=== PATIENT | male | born 1965 | race Caucasian/White ===

== ENCOUNTER 2018-10-08 10:00 | Outpatient (CLI) | payer BC | END 2018-10-08 10:01 | disposition home or self-care (01) | LOC: C.CTH 10:00 | DX: R07.89 Other chest pain (principal); M25.562 Pain in left knee ==

== ENCOUNTER 2018-10-08 10:56 | Inpatient (IN) | payer BC ==
[2018-10-08 12:12] LABS: BASO # 0.1 K/uL (0.0-0.2); BASO % 0.6 % (0.0-2.0); EOS # 0.4 K/uL (0.0-0.7); EOS % 3.2 % (0.0-4.0); HEMOGLOBIN 15.6 g/dL (12.0-18.0); LYMPH # 1.9 K/uL (1.0-4.3); LYMPH % 16.8 % (20.0-40.0); MEAN CELL VOLUME 84.7 fL (80.0-94.0); MEAN CORPUSCULAR HEMOGLOBIN 28.6 pg (27.0-31.0); MEAN CORPUSCULAR HGB CONC 33.8 g/dL (33.0-37.0); MEAN PLATELET VOLUME 8.1 fL (7.2-11.7); MONO # 0.7 K/uL (0.0-0.8); MONO % 6.4 % (0.0-10.0); NEUT # 8.2 K/uL (1.8-7.0); NRBC % 0.1 % (0.0-2.0); RBC 5.46 Mil/uL (4.40-5.90); RED CELL DISTRIBUTION WIDTH 14.1 % (11.5-14.5); WHITE BLOOD COUNT 11.3 K/uL (4.8-10.8)
[2018-10-08 12:23] LABS: ALB/GLOB RATIO 1.3 (1.0-2.1); ALBUMIN 4.2 g/dL (3.5-5.0); ALT/SGPT 36 U/L (21-72); AST/SGOT 31 U/L (17-59); BLOOD UREA NITROGEN 19 mg/dL (9-20); CALCIUM 9.9 mg/dl (8.6-10.4); GFR NON-AFRICAN AMERICAN > 60
--- NOTE | 2018-10-08 12:26 | C.PDOC ---
History Of Present Illness 53 y/o male is sent to the ER from CAT scan complaining of abdominal pain radiating to his chest. Patient states the pain initially started 3-4 months ago. He was seen by his PMD Dr. Smith and had an ultrasound of the gallbladder that was normal. Also had an endoscopy and bloodwork done that were both normal. Patient describes the pain as throbbing that starts in the epigastric region and radiates to chest. Reports he has it everyday and worsens with food intake, associated with nausea and vomiting. Denies fever, SOB, dysuria, or hematuria. Time Seen by Provider: 10/08/18 11:07 Chief Complaint (Nursing): Abdominal Pain History Per: Patient History/Exam Limitations: no limitations Onset/Duration Of Symptoms: Days Current Symptoms Are (Timing): Still Present Past Medical History Reviewed: Historical Data, Nursing Documentation, Vital Signs Vital Signs: Last Vital Signs Temp 98.5 F 10/08/18 10:58 Pulse 80 10/08/18 11:24 Resp 17 10/08/18 11:24 BP 134/91 H 10/08/18 11:24 Pulse Ox 97 10/08/18 11:24 Primary Care Provider: Jose Smith Family History: States: No Known Family Hx - Social History Hx Alcohol Use: No Hx Substance Use: No - Immunization History Hx Tetanus Toxoid Vaccination: Yes Hx Influenza Vaccination: Yes Hx Pneumococcal Vaccination: Yes Review Of Systems Constitutional: Negative for: Fever, Chills Respiratory: Negative for: Shortness of Breath Gastrointestinal: Positive for: Nausea, Vomiting, Abdominal Pain (radiating to chest). Negative for: Diarrhea Genitourinary: Negative for: Dysuria, Hematuria Physical Exam - Physical Exam Appears: Non-toxic, No Acute Distress, Other (mild discomfort) Skin: Warm, Dry Head: Normacephalic Eye(s): bilateral: Normal Inspection Oral Mucosa: Moist Neck: Supple Cardiovascular: Rhythm Regular, No Murmur Respiratory: Normal Breath Sounds, No Rales, No Rhonchi, No Wheezing Gastrointestinal/Abdominal: Soft, Tenderness (epigastric and LUQ tenderness), No Guarding, No Rebound, Other ((-)crocker's or mcburney's) Back: No CVA Tenderness Extremity: Bilateral: Normal ROM Neurological/Psych: Oriented x3, Normal Speech ED Course And Treatment - Laboratory Results Result Diagrams: 10/08/18 11:56 10/08/18 11:56 ECG: Interpreted By Me, Viewed By Me (NSR 77bpm, normal axis, no acute ST/T wave changes) ECG Interpretation: Normal O2 Sat by Pulse Oximetry: 97 (RA) Pulse Ox Interpretation: Normal - CT Scan/US CTA abd/pel Other Rad Studies (CT/US): Read By Radiologist, Radiology Report Reviewed CT/US Interpretation: Findings: Limited views of the inferior thorax demonstrates mild left basilar atelectasis/infiltrate. Nodularity/pleural thickening along the left lung base. There is normal course and contour of the abdominal aorta and common iliac arteries. The celiac artery origin is widely patent. The superior mesenteric artery origin is widely patent. The inferior mesenteric artery origin is patent. Bilateral renal arteries 2 on the left and 1 on the right identified bilaterally, both widely patent. Marked gastric wall thickening and associated inflammatory changes raise concern for acute gastritis. Pancreas appears edematous with associated peripancreatic inflamm atory changes; correlate clinically for acute pancreatitis. Prominent mesenteric/peripancreatic/perigastric lymph nodes measuring up to approximately 12 mm in short axis. Hypoattenuation of the liver compatible with hepatic steatosis. 8 mm probable splenule. The spleen, adrenal glands, and gallbladder appear otherwise unremarkable. The kidneys enhance symmetrically without evidence of hydronephrosis or obstructing renal calculi. Visualized bowel loops appear within normal limits of caliber without evidence of obstruction. Diverticulosis without CT evidence of acute diverticulitis. The appendix appears normal. No inflammatory changes are seen in the right lower quadrant to suggest acute appendicitis. No definite free air. The urinary bladder appears unremarkable. The prostate gland measures approximately 3.5 x 3.7 cm. Small pelvic free fluid is identified. 14 mm fat containing umbilical hernia. Left sided L5 spondylolysis. Impression: Mild left basilar atelectasis/infiltrate. Nodularity/pleural thickening along the left lung base. Marked gastric wall thickening and associated inflammatory changes raise concern for acute gastritis. Pancreas appears edematous with associated peripancreatic inflammatory changes; correlate clinically for acute pancreatitis. Prominent mesenteric/peripancreatic/perigastric lymph nodes measuring up to approximately 12 mm in short axis. Hypoattenuation of the liver compatible with hepatic steatosis. Diverticulosis without CT evidence of acute diverticulitis. Small pelvic free fluid is identified. 14 mm fat containing umbilical hernia. Left sided L5 spondylolysis. Findings discussed with Dr. Faria on 10/08/18 at 1:51 p.m. Abdomen US Other Rad Studies (CT/US): Read By Radiologist, Radiology Report Reviewed CT/US Interpretation: FINDINGS: LIVER: Measures 19.0 cm in length. Echogenic liver may be seen in setting of hepatic parenchymal disease or fatty infiltration. No focal hepatic mass identified. The main portal vein appears patent with normal directional flow. No intrahepatic bile duct dilatation. GALLBLADDER: No gallstones. No gallbladder wall thickening or pericholecystic edema. Negative sonographic Crocker's sign as assessed by the sales review clerk. C OMMON BILE DUCT: Measures 5 mm. PANCREAS: Not well-visualized. RIGHT KIDNEY: Measures approximately 11.6 x 4.6 x 5.3 cm. No obstructing calculus or hydronephrosis identified. AORTA: Limited visualization appears grossly unremarkable. IVC: Limited visualization appears grossly unremarkable. OTHER FINDINGS: None . IMPRESSION: Echogenic liver may be seen in setting of hepatic parenchymal disease or fatty infiltration. Hepatomegaly. Progress Note: Abd/Pel CTA and labs ordered. Patient given morphine. Abdomen US ordered. Disposition - Disposition - Scribe Statement The provider has reviewed the documentation as recorded by the Livanibdimitri Barron All medical record entries made by the Scribe were at my direction and personally dictated by me. I have reviewed the chart and agree that the record accurately reflects my personal performance of the history, physical exam, [facility] decision making, and the department course for this patient. I have also personally directed, reviewed, and agree with the discharge instructions and disposition.
[2018-10-08 12:29] LABS: CK-MB 0.92 ng/mL (0.0-3.38)
[2018-10-08 12:45] LABS: LIPASE 4816 U/L (23-300)
[2018-10-08] MEDS ORDERED: Iodixanol 320 MG/ML 100 ML BOTTLE IV ONE (13:14)
[2018-10-08 14:03] LABS: URINE BILIRUBIN NEGATIVE (NEGATIVE); URINE BLOOD NEGATIVE (NEGATIVE); URINE CLARITY Clear (Clear); URINE COLOR Yellow (YELLOW); URINE GLUCOSE (UA) NORMAL (Normal); URINE LEUKOCYTE ESTERASE NEG Leu/uL (Negative); URINE PROTEIN NEGATIVE (NEGATIVE); URINE UROBILINOGEN NORMAL mg/dL (0.2-1.0)
--- NOTE | 2018-10-08 14:09 | CT ---
Date of service: 10/08/2018 CTA abdomen and pelvis Indication: chronic upper abd pain, neg endoscopy and RUQ US Comparison: Abdomen CT without contrast performed 05/07/18 Technique: Contrast dose: Total exam DLP: 890.44 Axial computed tomographic angiogram images of the abdomen and pelvis were performed after bolus administration of nonionic intravenous contrast. Multiplanar, 3D (maximum intensity projection) reconstructions of the aorta were created in the coronal and sagittal planes by the instrument technologist. This CT exam was performed using 1 or more of the falling dose reduction techniques: Automated exposure control, adjustment of the MAA and/or kV according to patient size, and/or use of iterative reconstruction technique. Findings: Limited views of the inferior thorax demonstrates mild left basilar atelectasis/infiltrate. Nodularity/pleural thickening along the left lung base. There is normal course and contour of the abdominal aorta and common iliac arteries. The celiac artery origin is widely patent. The superior mesenteric artery origin is widely patent. The inferior mesenteric artery origin is patent. Bilateral renal arteries 2 on the left and 1 on the right identified bilaterally, both widely patent. Marked gastric wall thickening and associated inflammatory changes raise concern for acute gastritis. Pancreas appears edematous with associated peripancreatic inflammatory changes; correlate clinically for acute pancreatitis. Prominent mesenteric/peripancreatic/perigastric lymph nodes measuring up to approximately 12 mm in short axis. Hypoattenuation of the liver compatible with hepatic steatosis. 8 mm probable splenule. The spleen, adrenal glands, and gallbladder appear otherwise unremarkable. The kidneys enhance symmetrically without evidence of hydronephrosis or obstructing renal calculi. Visualized bowel loops appear within normal limits of caliber without evidence of obstruction. Diverticulosis without CT evidence of acute diverticulitis. The appendix appears normal. No inflammatory changes are seen in the right lower quadrant to suggest acute appendicitis. No definite free air. The urinary bladder appears unremarkable. The prostate gland measures approximately 3.5 x 3.7 cm. Small pelvic free fluid is identified. 14 mm fat containing umbilical hernia. Left sided L5 spondylolysis. Impression: Mild left basilar atelectasis/infiltrate. Nodularity/pleural thickening along the left lung base. Marked gastric wall thickening and associated inflammatory changes raise concern for acute gastritis. Pancreas appears edematous with associated peripancreatic inflammatory changes; correlate clinically for acute pancreatitis. Prominent mesenteric/peripancreatic/perigastric lymph nodes measuring up to approximately 12 mm in short axis. Hypoattenuation of the liver compatible with hepatic steatosis. Diverticulosis without CT evidence of acute diverticulitis. Small pelvic free fluid is identified. 14 mm fat containing umbilical hernia. Left sided L5 spondylolysis. Findings discussed with Dr. Faria on 10/08/18 at 1:51 p.m.
[2018-10-08] MEDS ORDERED: Sodium Chloride 0.9% 1,000 ML IV ONE (14:54)
[2018-10-08] MEDS ORDERED: Morphine 4 MG/ML VIAL ONE (15:01)
[2018-10-08] MEDS ORDERED: Sodium Chloride 0.9% 1,000 ML ONE (15:01)
[2018-10-08] MEDS ORDERED: Lactated Ringer's 1,000 ML IV SCH (15:30)
[2018-10-08 15:45] LABS: HDL CHOLESTEROL 32 mg/dL (30-70)
--- NOTE | 2018-10-08 15:49 | CP.PCM.HP ---
<Rema Rodríguez - Last Filed: 10/08/18 17:37> History of Present Illness - History of Present Illness History of Present Illness: Medicine Note for Hospitalist Service This is a 53 year old male with PMHx pancreatitis, diverticulosis, hepatic steatosis, and an umbilical hernia who is being admitted for chest and abdominal pain. Patient came to [facility] to have a CT scane done that was ordered by his PCP for continued abdominal pain. Patient reported to have chest pain and was encouraged to come to the ED for further evaluation. As per patient, he has had abdominal pain for almost 6 months. He had a prior abdominal CT Scan in April 2018, showing acute pancreatitis. Patient had EGD performed 4 months ago, which was unremarkable for any findings. He was instructed by his PMD to follow up with Cardio as well, however he has not. Patient reports because he works all day he does not eat. Instead he eats, mostly unhealthy food at night. As the 6 months progressed, the pain is worse and more frequent. The pain is sharp in nature, epigastric, and at times radiates to his chest and back. The patient has just dealt with the pain, however this time it was unbearable. He had a cup of coffee in the morning and vomited shortly after. Patient denied any alcohol use or recent travel. PMHx: As noted above PSHx: Right inguinal hernia repair 2018 Meds: Nexium as needed, omeprazole daily All: NKDA SHx: 1 PPD for 24 years quit 2 years ago, denied alcohol, or illicit drug use FHx: Unknown as patient was adopted PMD: Sarah Present on Admission - Present on Admission Any Indicators Present on Admission: No Past Patient History - Past Social History Smoking Status: Never Smoked - PSYCHIATRIC Hx Substance Use: No - SURGICAL HISTORY Hx Surgeries: Yes Hx Herniorrhaphy: Yes - ANESTHESIA Hx Anesthesia: Yes Hx Anesthesia Reactions: No Hx Malignant Hyperthermia: No Meds Allergies/Adverse Reactions: Allergies Allergy/AdvReac Type Severity Reaction Status Date / Time No Known Allergies Allergy Unverified 10/08/18 11:01 Physical Exam - Constitutional Appears: No Acute Distress - Head Exam Head Exam: NORMAL INSPECTION, NORMOCEPHALIC - Eye Exam Eye Exam: EOMI, Normal appearance, PERRL Pupil Exam: NORMAL ACCOMODATION - ENT Exam ENT Exam: Mucous Membranes Moist - Respiratory Exam Respiratory Exam: Clear to Auscultation Bilateral, NORMAL BREATHING PATTERN. absent: Decreased Breath Sounds, Rales, Rhonchi, Wheezes - Cardiovascular Exam Cardiovascular Exam: REGULAR RHYTHM - GI/Abdominal Exam GI & Abdominal Exam: Hernia (umbilical hernia noted), Normal Bowel Sounds, Soft, Tenderness (TTP epigastric region ). absent: Distended, Organomegaly, Pulsatile Mass, Rebound, Rigid - Extremities Exam Extremities exam: Positive for: normal inspection, pedal pulses present. Negative for: pedal edema, tenderness - Neurological Exam Neurological exam: Alert, CN II-XII Intact, Oriented x3 - Psychiatric Exam Psychiatric exam: Normal Affect, Normal Mood - Skin Skin Exam: Dry, Intact, Normal Color, Warm Results - Vital Signs Recent Vital Signs: Last Vital Signs Temp 98.5 F 10/08/18 10:58 Pulse 74 10/08/18 14:03 Resp 20 10/08/18 14:03 BP 133/85 10/08/18 14:03 Pulse Ox 97 10/08/18 15:35 - Labs Result Diagrams: 10/08/18 11:56 10/08/18 11:56 Labs: Laboratory Results - last 24 hr 10/08/18 10/08/18 10/08/18 11:56 11:56 13:53 WBC 11.3 H RBC 5.46 Hgb 15.6 Hct 46.2 MCV 84.7 MCH 28.6 MCHC 33.8 RDW 14.1 Plt Count 290 MPV 8.1 Neut % (Auto) 73.0 Lymph % (Auto) 16.8 L [place] % (Auto) 6.4 Eos % (Auto) 3.2 Baso % (Auto) 0.6 Neut # (Auto) 8.2 H Lymph # (Auto) 1.9 [place] # (Auto) 0.7 Eos # (Auto) 0.4 Baso # (Auto) 0.1 Sodium 137 Potassium 4.9 Chloride 99 Carbon Dioxide 30 Anion Gap 13 BUN 19 Creatinine 1.0 Est GFR ( Amer) > 60 Est GFR (Non-Af Amer) > 60 Random Glucose 108 Calcium 9.9 Total Bilirubin 0.6 AST 31 ALT 36 Alkaline Phosphatase 92 Total Creatine Kinase 108 CK-MB (Mass) 0.92 Troponin I < 0.0120 Total Protein 7.4 Albumin 4.2 Globulin 3.1 Albumin/Globulin Ratio 1.3 Lipase 4816 H Urine Color Yellow Urine Clarity Clear Urine pH 6.0 Ur Specific [place] 1.024 Urine Protein Negative Urine Glucose (UA) Normal Urine Ketones Negative Urine Blood Negative Urine Nitrate Negative Urine Bilirubin Negative Urine Urobilinogen Normal Ur Leukocyte Esterase Neg Urine WBC (Auto) < 1 Urine RBC (Auto) < 1 Assessment & Plan - Assessment and Plan (Free Text) Plan: Acute Pancreatitis -- Dr. Hoang consulted - (saw patient in 03/2018) Imaging: - Prior CT Scan 04/2018 - Findings suspicious for acute noncomplicated pancreatitis. No CT evidence of radiodense gallstones or acute cholecystitis. Mild hepatomegaly with findings suggestive of moderate hepatic steatosis. Foci of pleural thickening at the left chest base. - CTA 10/08/18: Mild left basilar atelectasis/infiltrate. Nodularity/pleural thickening along the left lung base. Marked gastric wall thickening and associated inflammatory changes raise concern for acute gastritis. Pancreas appears edematous with associated peripancreatic inflammatory changes; correlate clinically for acute pancreatitis. Prominent mesenteric/peripancreatic/perigastric lymph nodes measuring up to approximately 12 mm in short axis.Hypoattenuation of the liver compatible with hepatic steatosis. Diverticulosis without CT evidence of acute diverticulitis. Small pelvic free fluid is identified. 14 mm fat containing umbilical hernia. Left sided L5 spondylolysis. - Abdominal US 10/08/18: LIVER:Measures 19.0 cm in length. Echogenic liver may be seen in setting of hepatic parenchymal disease or fatty infiltration. No focal hepatic mass identified. The main portal vein appears patent with normal directional flow. No intrahepatic bile duct dilatation. GALLBLADDER:No gallstones. No gallbladder wall thickening or pericholecystic edema. Negative sonographic Crocker's sign as assessed by the doctor of naprapathic medicine. COMMON BILE DUCT:Measures 5 mm. - MRCP: ordered, pending results Management: - NPO - Lipase 4800, Lipid Panel - WNL, Alcohol <10 - No evidence of gallstone pancreatitis on US - Patient denied any alcohol use, not induced by medications - Spoke with Dr. Sandoval covering for Dr. Hoang - MRCP and autoimmune work up ordered - Morphine 2mg IVP Q6H, Zofran PRN - LR @ 250cc/hr Chest Pain r/o ACS - Likely epigastric pain secondary to acute pancreatitis - EKG: NSR 77bpm, normal axis, no acute ST/T wave changes - Initial troponin negative, f/u [facility] x2 Former Tobacco User - 1 PPD for 34 years, quit 2 years ago - No masses noted on CTA Diverticulosis - Without CT evidence of acute diverticulitis - Noted on CTA and prior CT Scan 04/2018 Hepatic Steatosis - Noted on CTA and prior CT Scan 04/2018 Umbilical Hernia - Noted on CTA and prior CT Scan 04/2018 Prophylactic Measures - GI PPX: Protonix IVP daily - DVT PPX: SCDs, VTE not indicated Disposition: Will advance diet as tolerated. Pending MRCP results. DW Dr. Cavazos, Rema Rodríguez DO, PGY2 <Keenan Cavazos - Last Filed: 10/09/18 07:54> Results - Vital Signs Recent Vital Signs: Last Vital Signs Temp 98.6 F 10/09/18 00:14 Pulse 88 10/09/18 00:14 Resp 20 10/09/18 00:14 BP 114/79 10/09/18 00:14 Pulse Ox 97 10/09/18 00:14 - Labs Result Diagrams: 10/09/18 07:17 10/08/18 11:56 Labs: Laboratory Results - last 24 hr 10/08/18 10/08/18 10/08/18 11:56 11:56 13:53 WBC 11.3 H RBC 5.46 Hgb 15.6 Hct 46.2 MCV 84.7 MCH 28.6 MCHC 33.8 RDW 14.1 Plt Count 290 MPV 8.1 Neut % (Auto) 73.0 Lymph % (Auto) 16.8 L [place] % (Auto) 6.4 Eos % (Auto) 3.2 Baso % (Auto) 0.6 Neut # (Auto) 8.2 H Lymph # (Auto) 1.9 [place] # (Auto) 0.7 Eos # (Auto) 0.4 Baso # (Auto) 0.1 Sodium 137 Potassium 4.9 Chloride 99 Carbon Dioxide 30 Anion Gap 13 BUN 19 Creatinine 1.0 Est GFR ( Amer) > 60 Est GFR (Non-Af Amer) > 60 Random Glucose 108 Calcium 9.9 Total Bilirubin 0.6 AST 31 ALT 36 Alkaline Phosphatase 92 Total Creatine Kinase 108 CK-MB (Mass) 0.92 Troponin I < 0.0120 Total Protein 7.4 Albumin 4.2 Globulin 3.1 Albumin/Globulin Ratio 1.3 Triglycerides Cholesterol LDL Cholesterol Direct HDL Cholesterol Lipase 4816 H Urine Color Yellow Urine Clarity Clear Urine pH 6.0 Ur Specific [place] 1.024 Urine Protein Negative Urine Glucose (UA) Normal Urine Ketones Negative Urine Blood Negative Urine Nitrate Negative Urine Bilirubin Negative Urine Urobilinogen Normal Ur Leukocyte Esterase Neg Urine WBC (Auto) < 1 Urine RBC (Auto) < 1 Urine Opiates Screen Urine Methadone Screen Ur Barbiturates Screen Ur Phencyclidine Scrn Ur Amphetamines Screen U Benzodiazepines Scrn U Oth Cocaine Metabols U Cannabinoids Screen Alcohol, Quantitative 10/08/18 10/08/18 10/08/18 15:34 15:36 19:19 WBC RBC Hgb Hct MCV MCH MCHC RDW Plt Count MPV Neut % (Auto) Lymph % (Auto) [place] % (Auto) Eos % (Auto) Baso % (Auto) Neut # (Auto) Lymph # (Auto) [place] # (Auto) Eos # (Auto) Baso # (Auto) Sodium Potassium Chloride Carbon Dioxide Anion Gap BUN Creatinine Est GFR ( Amer) Est GFR (Non-Af Amer) Random Glucose Calcium Total Bilirubin AST ALT Alkaline Phosphatase Total Creatine Kinase 75 CK-MB (Mass) 0.69 Troponin I < 0.0120 Total Protein Albumin Globulin Albumin/Globulin Ratio Triglycerides 139 Cholesterol 178 LDL Cholesterol Direct 122 HDL Cholesterol 32 Lipase Urine Color Urine Clarity Urine pH Ur Specific [place] Urine Protein Urine Glucose (UA) Urine Ketones Urine Blood Urine Nitrate Urine Bilirubin Urine Urobilinogen Ur Leukocyte Esterase Urine WBC (Auto) Urine RBC (Auto) Urine Opiates Screen Positive H Urine Methadone Screen Negative Ur Barbiturates Screen Negative Ur Phencyclidine Scrn Negative Ur Amphetamines Screen Negative U Benzodiazepines Scrn Negative U Oth Cocaine Metabols Negative U Cannabinoids Screen Negative Alcohol, Quantitative < 10 10/09/18 07:17 WBC 9.9 RBC 5.19 Hgb 14.7 Hct 44.7 MCV 86.1 MCH 28.4 MCHC 33.0 RDW 14.2 Plt Count 276 MPV 8.0 Neut % (Auto) 68.8 Lymph % (Auto) 19.4 L [place] % (Auto) 7.7 Eos % (Auto) 3.9 Baso % (Auto) 0.2 Neut # (Auto) 6.8 Lymph # (Auto) 1.9 [place] # (Auto) 0.8 Eos # (Auto) 0.4 Baso # (Auto) 0.0 Sodium Potassium Chloride Carbon Dioxide Anion Gap BUN Creatinine Est GFR ( Amer) Est GFR (Non-Af Amer) Random Glucose Calcium Total Bilirubin AST ALT Alkaline Phosphatase Total Creatine Kinase CK-MB (Mass) Troponin I Total Protein Albumin Globulin Albumin/Globulin Ratio Triglycerides Cholesterol LDL Cholesterol Direct HDL Cholesterol Lipase Urine Color Urine Clarity Urine pH Ur Specific [place] Urine Protein Urine Glucose (UA) Urine Ketones Urine Blood Urine Nitrate Urine Bilirubin Urine Urobilinogen Ur Leukocyte Esterase Urine WBC (Auto) Urine RBC (Auto) Urine Opiates Screen Urine Methadone Screen Ur Barbiturates Screen Ur Phencyclidine Scrn Ur Amphetamines Screen U Benzodiazepines Scrn U Oth Cocaine Metabols U Cannabinoids Screen Alcohol, Quantitative Attending/Attestation - Attestation I have personally seen and examined this patient.: Yes I have fully participated in the care of the patient.: Yes I have reviewed all pertinent clinical information: Yes Notes (Text): 10/09/18 07:51 Medical attending: Patient was seen and examined by me. Agree with the above note by the resident The patient was with family members at bedside. The patient was already made NPO, IVF, pain medications. He had ultrasound and CT of the abdomen and pelvis done already - and the imaging was He also denied alcohol use and has not started a new medication, cholesterol is stable as well Will consult GI for evaluation as well Keenan Cavazos
--- NOTE | 2018-10-08 15:50 | US ---
Date of service: 10/08/2018 HISTORY: PANCREATITIS R/O GALLSTONES COMPARISON: CTA abdomen and pelvis performed 10/08/18 TECHNIQUE: Sonographic evaluation of the right upper quadrant of the abdomen. FINDINGS: LIVER: Measures 19.0 cm in length. Echogenic liver may be seen in setting of hepatic parenchymal disease or fatty infiltration. No focal hepatic mass identified. The main portal vein appears patent with normal directional flow. No intrahepatic bile duct dilatation. GALLBLADDER: No gallstones. No gallbladder wall thickening or pericholecystic edema. Negative sonographic Crocker's sign as assessed by the traffic ii manager. COMMON BILE DUCT: Measures 5 mm. PANCREAS: Not well-visualized. RIGHT KIDNEY: Measures approximately 11.6 x 4.6 x 5.3 cm. No obstructing calculus or hydronephrosis identified. AORTA: Limited visualization appears grossly unremarkable. IVC: Limited visualization appears grossly unremarkable. OTHER FINDINGS: None . IMPRESSION: Echogenic liver may be seen in setting of hepatic parenchymal disease or fatty infiltration. Hepatomegaly.
[2018-10-08 15:56] LABS: LDL CHOLESTEROL 122 mg/dL (0-129)
[2018-10-08 15:59] LABS: BARBITURATES, UR NEGATIVE (NEGATIVE); BENZODIAZEPINES, UR NEGATIVE (NEGATIVE); PHENCYCLIDINE, UR NEGATIVE (NEGATIVE)
[2018-10-08 16:00] LABS: OPIATES, UR POSITIVE (NEGATIVE)
[2018-10-08] MEDS: Lactated Ringer's 1,000 ML IV SCH ×2 (19:23→21:24)
[2018-10-08 19:49] LABS: CK-MB 0.69 ng/mL (0.0-3.38)
[2018-10-09] MEDS: Lactated Ringer's 1,000 ML IV SCH ×10 (01:50→23:04)
[2018-10-09 07:29] LABS: BASO % 0.2 % (0.0-2.0); EOS # 0.4 K/uL (0.0-0.7); EOS % 3.9 % (0.0-4.0); HEMOGLOBIN 14.7 g/dL (12.0-18.0); LYMPH # 1.9 K/uL (1.0-4.3); LYMPH % 19.4 % (20.0-40.0); MEAN CELL VOLUME 86.1 fL (80.0-94.0); MEAN CORPUSCULAR HEMOGLOBIN 28.4 pg (27.0-31.0); MONO # 0.8 K/uL (0.0-0.8); MONO % 7.7 % (0.0-10.0); NEUT # 6.8 K/uL (1.8-7.0); NEUT % 68.8 % (50.0-75.0); NRBC % 0.1 % (0.0-2.0); RBC 5.19 Mil/uL (4.40-5.90); RED CELL DISTRIBUTION WIDTH 14.2 % (11.5-14.5); WHITE BLOOD COUNT 9.9 K/uL (4.8-10.8)
[2018-10-09 07:52] LABS: CK-MB 0.43 ng/mL (0.0-3.38)
[2018-10-09 07:59] LABS: ALB/GLOB RATIO 1.3 (1.0-2.1); ALBUMIN 3.7 g/dL (3.5-5.0); ALT/SGPT 29 U/L (21-72); AST/SGOT 23 U/L (17-59); BLOOD UREA NITROGEN 15 mg/dL (9-20); CALCIUM 9.4 mg/dl (8.6-10.4); GFR NON-AFRICAN AMERICAN > 60
--- NOTE | 2018-10-09 09:14 | CP.PCM.PN ---
<Rema Rodríguez - Last Filed: 10/09/18 09:22> Subjective - Date & Time of Evaluation Date of Evaluation: 10/09/18 Time of Evaluation: 09:12 - Subjective Subjective: Medicine Note for Hospitalist Service Patient was seen and examined at bedside. Patient reports he did have some pain last night, which was controlled with pain medication. Currently patient does not have pain. Objective - Vital Signs/Intake and Output Vital Signs (last 24 hours): Temp Pulse Resp BP Pulse Ox 98.2 F 82 20 128/86 95 10/09/18 07:00 10/09/18 07:00 10/09/18 07:00 10/09/18 07:00 10/09/18 07:00 Intake and Output: 10/09/18 10/09/18 06:59 18:59 Intake Total 2200 Balance 2200 - Medications Medications: Current Medications Acetaminophen (Tylenol 325mg Tab) 650 mg PO Q6 PRN PRN Reason: Fever >100.4 F Lactated Ringer's (Lactated Ringer's) 1,000 mls @ 250 mls/hr IV .Q4H [facility] Last Admin: 10/09/18 08:11 Dose: 250 mls/hr Morphine Sulfate (Morphine) 2 mg IVP Q6H PRN PRN Reason: Pain, severe (8-10) Last Admin: 10/09/18 03:42 Dose: 2 mg Ondansetron HCl (Zofran Inj) 4 mg IVP Q6 PRN PRN Reason: Nausea/Vomiting Pantoprazole Sodium (Protonix Inj) 40 mg IVP DAILY RODRIGO - Labs Labs: 10/09/18 07:17 10/09/18 07:17 - Constitutional Appears: No Acute Distress - Head Exam Head Exam: NORMAL INSPECTION, NORMOCEPHALIC - Eye Exam Eye Exam: EOMI, Normal appearance, PERRL Pupil Exam: NORMAL ACCOMODATION - ENT Exam ENT Exam: Mucous Membranes Moist - Respiratory Exam Respiratory Exam: Clear to Ausculation Bilateral, NORMAL BREATHING PATTERN. absent: Decreased Breath Sounds - Cardiovascular Exam Cardiovascular Exam: REGULAR RHYTHM - GI/Abdominal Exam GI & Abdominal Exam: Soft, Tenderness (Slight tenderness to the epigastric area, reduced from yesterdays exam), Normal Bowel Sounds. absent: Distended - Extremities Exam Extremities Exam: Normal Inspection. absent: Pedal Edema, Tenderness - Neurological Exam Neurological Exam: Alert, Awake, Oriented x3 - Psychiatric Exam Psychiatric exam: Normal Affect, Normal Mood - Skin Skin Exam: Dry, Intact, Normal Color, Warm Assessment and Plan - Assessment and Plan (Free Text) Plan: Acute Pancreatitis -- Dr. Hoang consulted - (saw patient in 03/2018) Imaging: - Prior CT Scan 04/2018 - Findings suspicious for acute noncomplicated pancreatitis. No CT evidence of radiodense gallstones or acute cholecystitis. Mild hepatomegaly with findings suggestive of moderate hepatic steatosis. Foci of pleural thickening at the left chest base. - CTA 10/08/18: Mild left basilar atelectasis/infiltrate. Nodularity/pleural thickening along the left lung base. Marked gastric wall thickening and associated inflammatory changes raise concern for acute gastritis. Pancreas appears edematous with associated peripancreatic inflammatory changes; correlate clinically for acute pancreatitis. Prominent mesenteric/peripancreatic/perigastric lymph nodes measuring up to approximately 12 mm in short axis.Hypoattenuation of the liver compatible with hepatic steatosis. Diverticulosis without CT evidence of acute diverticulitis. Small pelvic free fluid is identified. 14 mm fat containing umbilical hernia. Left sided L5 spondylolysis. - Abdominal US 10/08/18: LIVER:Measures 19.0 cm in length. Echogenic liver may be seen in setting of hepatic parenchymal disease or fatty infiltration. No focal hepatic mass identified. The main portal vein appears patent with normal directional flow. No intrahepatic bile duct dilatation. GALLBLADDER:No gallstones. No gallbladder wall thickening or pericholecystic edema. Negative sonographic Crocker's sign as assessed by the frame builder. COMMON BILE DUCT:Measures 5 mm. - MRCP: ordered, pending results Management: - NPO - Lipase 4800, Lipid Panel - WNL, Alcohol <10 - No evidence of gallstone pancreatitis on US - Patient denied any alcohol use, not induced by medications - Spoke with Dr. Sandoval covering for Dr. Hoang - MRCP and autoimmune work up ordered - Morphine 2mg IVP Q6H, Zofran PRN - LR @ 250cc/hr Chest Pain r/o ACS - Likely epigastric pain secondary to acute pancreatitis - EKG: NSR 77bpm, normal axis, no acute ST/T wave changes - All ROMIs x3 negative Former Tobacco User - 1 PPD for 34 years, quit 2 years ago - No masses noted on CTA Diverticulosis - Without CT evidence of acute diverticulitis - Noted on CTA and prior CT Scan 04/2018 Hepatic Steatosis - Noted on CTA and prior CT Scan 04/2018 Umbilical Hernia - Noted on CTA and prior CT Scan 04/2018 Prophylactic Measures - GI PPX: Protonix IVP daily - DVT PPX: SCDs, VTE not indicated Disposition: Will advance diet as tolerated. Pending MRCP results. Autoimmune workup ordered. DW Dr. Cavazos, Rema Rodríguez DO, PGY2 <Keenan Cavazos - Last Filed: 10/09/18 09:59> Objective - Vital Signs/Intake and Output Vital Signs (last 24 hours): Temp Pulse Resp BP Pulse Ox 98.2 F 82 20 128/86 95 10/09/18 07:00 10/09/18 07:00 10/09/18 07:00 10/09/18 07:00 10/09/18 07:00 Intake and Output: 10/09/18 10/09/18 06:59 18:59 Intake Total 2200 Balance 2200 - Medications Medications: Current Medications Acetaminophen (Tylenol 325mg Tab) 650 mg PO Q6 PRN PRN Reason: Fever >100.4 F Lactated Ringer's (Lactated Ringer's) 1,000 mls @ 150 mls/hr IV .Q6H40M RODRIGO Morphine Sulfate (Morphine) 2 mg IVP Q6H PRN PRN Reason: Pain, severe (8-10) Last Admin: 10/09/18 03:42 Dose: 2 mg Ondansetron HCl (Zofran Inj) 4 mg IVP Q6 PRN PRN Reason: Nausea/Vomiting - Labs Labs: 10/09/18 07:17 10/09/18 07:17 Attending/Attestation - Attestation I have personally seen and examined this patient.: Yes I have fully participated in the care of the patient.: Yes I have reviewed all pertinent clinical information, including history, physical exam and plan: Yes Notes (Text): 10/09/18 09:47 Medical attending: Patient was seen and examined by me earlier this morning with the medical residents. The patient was not in any acute distress when we came and saw him. He also did not have pain with palpation this morning of the abdomen. He explains he had pain only once last night and this was controlled with the administration of the IV morphine. At this moment he remains on the IVF, NPO. He is pending MRCP and also autoimmune lab work thank you Keenan Cavazos
--- NOTE | 2018-10-09 09:16 | CP.PCM.CON ---
History of Present Illness - History of Present Illness History of Present Illness: This is a 53 year old man with abdominal pain. Patient initially noted abdominal pain, epigastric, six months ago. The pain occurred daily, was described as colicky, intermittent, lasting several minutes to an hour at a time, radiating to the chest and back. The pain seemed to improve with eating and with defecating. He was evaluated with an EGD by Dr. Hoang last year which was normal. A CT scan 05/07/2018 showed a "prominent" pancreas with associated fat stranding which was thought to be consistent with pancreatitis. He had nausea and vomiting on Wednesday, but not before. He denies having difficultly swallowing, heartburn, loss of appetite, loss of weight, diarrhea, constipation, and rectal bleeding. A repeat CT scan was performed in the ER, which showed an edematous pancreas with associated peripancreatic inflammatory changes; in addition, prominent mesenteric peripancreatic and perigastric lymph nodes were seen. Ultrasound showed no gallstones and a normal common duct. The lipase was elevated to 4816. Review of Systems - Review of Systems All systems: reviewed and no additional remarkable complaints except - Constitutional Constitutional: absent: Anorexia, Chills, Fever, Weight Loss - Cardiovascular Cardiovascular: absent: Dyspnea - Respiratory Respiratory: absent: Dyspnea - Gastrointestinal Gastrointestinal: Abdominal Pain, Nausea, Vomiting. absent: Constipation, Diarrhea, Dysphagia, Heartburn, Hematochezia - Genitourinary Genitourinary: absent: Dysuria, Hematuria Past Patient History - Past Medical History & Family History Past Medical History?: No - Past Social History Smoking Status: Never Smoked - MUSCULOSKELETAL/RHEUMATOLOGICAL Hx Falls: No - PSYCHIATRIC Hx Substance Use: No - SURGICAL HISTORY Hx Surgeries: Yes Hx Herniorrhaphy: Yes - ANESTHESIA Hx Anesthesia: Yes Hx Anesthesia Reactions: No Hx Malignant Hyperthermia: No Meds Allergies/Adverse Reactions: Allergies Allergy/AdvReac Type Severity Reaction Status Date / Time No Known Allergies Allergy Unverified 10/08/18 11:01 - Medications Medications: Current Medications Acetaminophen (Tylenol 325mg Tab) 650 mg PO Q6 PRN PRN Reason: Fever >100.4 F Lactated Ringer's (Lactated Ringer's) 1,000 mls @ 250 mls/hr IV .Q4H [facility] Last Admin: 10/09/18 08:11 Dose: 250 mls/hr Morphine Sulfate (Morphine) 2 mg IVP Q6H PRN PRN Reason: Pain, severe (8-10) Last Admin: 10/09/18 03:42 Dose: 2 mg Ondansetron HCl (Zofran Inj) 4 mg IVP Q6 PRN PRN Reason: Nausea/Vomiting Pantoprazole Sodium (Protonix Inj) 40 mg IVP DAILY RODRIGO Physical Exam - Constitutional Appears: No Acute Distress - Head Exam Head Exam: ATRAUMATIC, NORMOCEPHALIC - Eye Exam Eye Exam: EOMI, PERRL - Neck Exam Neck exam: Negative for: Lymphadenopathy, Thyromegaly - Respiratory Exam Respiratory Exam: NORMAL BREATHING PATTERN. absent: Rales, Rhonchi, Wheezes - Cardiovascular Exam Cardiovascular Exam: REGULAR RHYTHM, +S1, +S2. absent: Gallop, Rubs, Systolic Murmur - GI/Abdominal Exam GI & Abdominal Exam: Normal Bowel Sounds, Soft. absent: Mass, Organomegaly, Tenderness - Rectal Exam Rectal Exam: Deferred - Extremities Exam Extremities exam: Negative for: calf tenderness, pedal edema Results - Vital Signs Recent Vital Signs: Last Vital Signs Temp 98.2 F 10/09/18 07:00 Pulse 82 10/09/18 07:00 Resp 20 10/09/18 07:00 BP 128/86 10/09/18 07:00 Pulse Ox 95 10/09/18 07:00 - Labs Result Diagrams: 10/09/18 07:17 10/09/18 07:17 Labs: Laboratory Results - last 24 hr 10/08/18 10/08/18 10/08/18 11:56 11:56 13:53 WBC 11.3 H RBC 5.46 Hgb 15.6 Hct 46.2 MCV 84.7 MCH 28.6 MCHC 33.8 RDW 14.1 Plt Count 290 MPV 8.1 Neut % (Auto) 73.0 Lymph % (Auto) 16.8 L Kidder % (Auto) 6.4 Eos % (Auto) 3.2 Baso % (Auto) 0.6 Neut # (Auto) 8.2 H Lymph # (Auto) 1.9 Kidder # (Auto) 0.7 Eos # (Auto) 0.4 Baso # (Auto) 0.1 Sodium 137 Potassium 4.9 Chloride 99 Carbon Dioxide 30 Anion Gap 13 BUN 19 Creatinine 1.0 Est GFR ( Amer) > 60 Est GFR (Non-Af Amer) > 60 Random Glucose 108 Calcium 9.9 Phosphorus Magnesium Total Bilirubin 0.6 AST 31 ALT 36 Alkaline Phosphatase 92 Total Creatine Kinase 108 CK-MB (Mass) 0.92 Troponin I < 0.0120 Total Protein 7.4 Albumin 4.2 Globulin 3.1 Albumin/Globulin Ratio 1.3 Triglycerides Cholesterol LDL Cholesterol Direct HDL Cholesterol Lipase 4816 H Urine Color Yellow Urine Clarity Clear Urine pH 6.0 Ur Specific [place] 1.024 Urine Protein Negative Urine Glucose (UA) Normal Urine Ketones Negative Urine Blood Negative Urine Nitrate Negative Urine Bilirubin Negative Urine Urobilinogen Normal Ur Leukocyte Esterase Neg Urine WBC (Auto) < 1 Urine RBC (Auto) < 1 Urine Opiates Screen Urine Methadone Screen Ur Barbiturates Screen Ur Phencyclidine Scrn Ur Amphetamines Screen U Benzodiazepines Scrn U Oth Cocaine Metabols U Cannabinoids Screen Alcohol, Quantitative 10/08/18 10/08/18 10/08/18 15:34 15:36 19:19 WBC RBC Hgb Hct MCV MCH MCHC RDW Plt Count MPV Neut % (Auto) Lymph % (Auto) Kidder % (Auto) Eos % (Auto) Baso % (Auto) Neut # (Auto) Lymph # (Auto) Kidder # (Auto) Eos # (Auto) Baso # (Auto) Sodium Potassium Chloride Carbon Dioxide Anion Gap BUN Creatinine Est GFR ( Amer) Est GFR (Non-Af Amer) Random Glucose Calcium Phosphorus Magnesium Total Bilirubin AST ALT Alkaline Phosphatase Total Creatine Kinase 75 CK-MB (Mass) 0.69 Troponin I < 0.0120 Total Protein Albumin Globulin Albumin/Globulin Ratio Triglycerides 139 Cholesterol 178 LDL Cholesterol Direct 122 HDL Cholesterol 32 Lipase Urine Color Urine Clarity Urine pH Ur Specific [place] Urine Protein Urine Glucose (UA) Urine Ketones Urine Blood Urine Nitrate Urine Bilirubin Urine Urobilinogen Ur Leukocyte Esterase Urine WBC (Auto) Urine RBC (Auto) Urine Opiates Screen Positive H Urine Methadone Screen Negative Ur Barbiturates Screen Negative Ur Phencyclidine Scrn Negative Ur Amphetamines Screen Negative U Benzodiazepines Scrn Negative U Oth Cocaine Metabols Negative U Cannabinoids Screen Negative Alcohol, Quantitative < 10 10/09/18 10/09/18 07:17 07:17 WBC 9.9 RBC 5.19 Hgb 14.7 Hct 44.7 MCV 86.1 MCH 28.4 MCHC 33.0 RDW 14.2 Plt Count 276 MPV 8.0 Neut % (Auto) 68.8 Lymph % (Auto) 19.4 L Kidder % (Auto) 7.7 Eos % (Auto) 3.9 Baso % (Auto) 0.2 Neut # (Auto) 6.8 Lymph # (Auto) 1.9 Kidder # (Auto) 0.8 Eos # (Auto) 0.4 Baso # (Auto) 0.0 Sodium 134 Potassium 4.8 Chloride 97 L Carbon Dioxide 29 Anion Gap 11 BUN 15 Creatinine 1.0 Est GFR ( Amer) > 60 Est GFR (Non-Af Amer) > 60 Random Glucose 105 Calcium 9.4 Phosphorus 3.0 Magnesium 1.9 Total Bilirubin 0.6 AST 23 ALT 29 Alkaline Phosphatase 76 Total Creatine Kinase 70 CK-MB (Mass) 0.43 Troponin I < 0.0120 Total Protein 6.4 Albumin 3.7 Globulin 2.7 Albumin/Globulin Ratio 1.3 Triglycerides Cholesterol LDL Cholesterol Direct HDL Cholesterol Lipase Urine Color Urine Clarity Urine pH Ur Specific [place] Urine Protein Urine Glucose (UA) Urine Ketones Urine Blood Urine Nitrate Urine Bilirubin Urine Urobilinogen Ur Leukocyte Esterase Urine WBC (Auto) Urine RBC (Auto) Urine Opiates Screen Urine Methadone Screen Ur Barbiturates Screen Ur Phencyclidine Scrn Ur Amphetamines Screen U Benzodiazepines Scrn U Oth Cocaine Metabols U Cannabinoids Screen Alcohol, Quantitative Assessment & Plan (1) Pancreatitis Assessment and Plan: Patient has chronic abdominal pain, abnormal pancreas on CT scan since April,, and evidence of acute pancreatitis. This may be recurrent, acute pancreatitis or chronic pancreatitis. Will check for ductal abnormalities including cancer, hypertriglyceridemia and autoimmune pancreatitis. Recommend vigorous hydration until HCT is below 40%. Status: Acute
[2018-10-09] MEDS ORDERED: Lactated Ringer's 1,000 ML IV SCH (09:45)
[2018-10-09] MEDS ORDERED: Enoxaparin 40 mg Syringe SC SCH (10:00)
[2018-10-10] MEDS: Lactated Ringer's 1,000 ML IV SCH ×3 (00:53→06:27)
[2018-10-10 06:51] LABS: BASO % 0.2 % (0.0-2.0); EOS # 0.5 K/uL (0.0-0.7); EOS % 4.7 % (0.0-4.0); HEMOGLOBIN 13.6 g/dL (12.0-18.0); LYMPH # 1.9 K/uL (1.0-4.3); LYMPH % 19.9 % (20.0-40.0); MEAN CELL VOLUME 85.4 fL (80.0-94.0); MEAN CORPUSCULAR HEMOGLOBIN 28.4 pg (27.0-31.0); MEAN CORPUSCULAR HGB CONC 33.3 g/dL (33.0-37.0); MEAN PLATELET VOLUME 8.1 fL (7.2-11.7); MONO # 0.9 K/uL (0.0-0.8); MONO % 9.3 % (0.0-10.0); NEUT # 6.4 K/uL (1.8-7.0); NEUT % 65.9 % (50.0-75.0); RBC 4.78 Mil/uL (4.40-5.90); RED CELL DISTRIBUTION WIDTH 13.8 % (11.5-14.5); WHITE BLOOD COUNT 9.7 K/uL (4.8-10.8)
[2018-10-10 07:05] LABS: ALB/GLOB RATIO 1.3 (1.0-2.1); ALBUMIN 3.3 g/dL (3.5-5.0); ALT/SGPT 28 U/L (21-72); AST/SGOT 20 U/L (17-59); BLOOD UREA NITROGEN 10 mg/dL (9-20); CALCIUM 8.7 mg/dl (8.6-10.4); GFR NON-AFRICAN AMERICAN > 60
[2018-10-10 07:46] VITALS: RESP 20
--- NOTE | 2018-10-10 10:34 | CP.PCM.PN ---
<Alonso Sanders - Last Filed: 10/10/18 15:39> Subjective - Date & Time of Evaluation Date of Evaluation: 10/10/18 Time of Evaluation: 10:48 - Subjective Subjective: PGY-[address] Michelle Patient seen and examined at bedside. No acute events overnight. Patient states abdominal pain is 0/10 today. Remains NPO. Patient to go for MRCP today. Patient denies nausea, vomiting, diarrhea, chest pain headache, shortness of breath. Objective - Vital Signs/Intake and Output Vital Signs (last 24 hours): Temp Pulse Resp BP Pulse Ox 97.9 F 79 20 123/79 97 10/10/18 07:44 10/10/18 07:44 10/10/18 07:44 10/10/18 07:44 10/10/18 07:44 Intake and Output: 10/10/18 10/10/18 06:59 18:59 Intake Total 5300 Balance 5300 - Medications Medications: Current Medications Acetaminophen (Tylenol 325mg Tab) 650 mg PO Q6 PRN PRN Reason: Fever >100.4 F Lactated Ringer's (Lactated Ringer's) 1,000 mls @ 150 mls/hr IV .Q6H40M [facility] Last Admin: 10/10/18 06:26 Dose: 150 mls/hr Lactated Ringer's (Lactated Ringer's) 1,000 mls @ 150 mls/hr IV .Q6H40M [facility] Last Admin: 10/10/18 06:27 Dose: 150 mls/hr Morphine Sulfate (Morphine) 2 mg IVP Q6H PRN PRN Reason: Pain, severe (8-10) Last Admin: 10/09/18 10:13 Dose: 2 mg Ondansetron HCl (Zofran Inj) 4 mg IVP Q6 PRN PRN Reason: Nausea/Vomiting - Labs Labs: 10/10/18 06:40 10/10/18 06:40 - Constitutional Appears: Non-toxic, No Acute Distress - Head Exam Head Exam: ATRAUMATIC, NORMOCEPHALIC - Eye Exam Eye Exam: EOMI, Normal appearance - ENT Exam ENT Exam: Mucous Membranes Moist - Respiratory Exam Respiratory Exam: Clear to Ausculation Bilateral. absent: Rales, Rhonchi, Wheezes - Cardiovascular Exam Cardiovascular Exam: REGULAR RHYTHM, +S1, +S2 - GI/Abdominal Exam GI & Abdominal Exam: Soft, Normal Bowel Sounds. absent: Tenderness - Neurological Exam Neurological Exam: Alert, Awake, CN II-XII Intact, Oriented x3 - Psychiatric Exam Psychiatric exam: Normal Affect, Normal Mood - Skin Skin Exam: Dry, Intact Assessment and Plan - Assessment and Plan (Free Text) Assessment: Acute Pancreatitis -- Dr. Hoang consulted - (saw patient in 03/2018) Imaging: - Prior CT Scan 04/2018 - Findings suspicious for acute noncomplicated pancreatitis. No CT evidence of radiodense gallstones or acute cholecystitis. Mild hepatomegaly with findings suggestive of moderate hepatic steatosis. Foci of pleural thickening at the left chest base. - CTA 10/08/18: Mild left basilar atelectasis/infiltrate. Nodularity/pleural thickening along the left lung base. Marked gastric wall thickening and associated inflammatory changes raise concern for acute gastritis. Pancreas appears edematous with associated peripancreatic inflammatory changes; correlate clinically for acute pancreatitis. Prominent mesenteric/peripancreatic/perigastric lymph nodes measuring up to approximately 12 mm in short axis.Hypoattenuation of the liver compatible with hepatic steatos is. Diverticulosis without CT evidence of acute diverticulitis. Small pelvic free fluid is identified. 14 mm fat containing umbilical hernia. Left sided L5 spondylolysis. - Abdominal US 10/08/18: LIVER:Measures 19.0 cm in length. Echogenic liver may be seen in setting of hepatic parenchymal disease or fatty infiltration. No focal hepatic mass identified. The main portal vein appears patent with normal directional flow. No intrahepatic bile duct dilatation. GALLBLADDER:No gallstones. No gallbladder wall thickening or pericholecystic edema. Negative sonographic Crocker's sign as assessed by the parts order and stock clerk. COMMON BILE DUCT:Measures 5 mm. - MRCP : Unremarkable exam. Management: - Diet advanced: CLD - Lipase 4800, Lipid Panel - WNL, Alcohol <10 - No evidence of gallstone pancreatitis on US - Patient denied any alcohol use, not induced by medications - MRCP and autoimmune work up ordered - Morphine 2mg IVP Q6H, Zofran PRN - LR @ 250cc/hr Chest Pain r/o ACS - Likely epigastric pain secondary to acute pancreatitis - EKG: NSR 77bpm, normal axis, no acute ST/T wave changes - All ROMIs x3 negative Former Tobacco User - 1 PPD for 34 years, quit 2 years ago - No masses noted on CTA Diverticulosis - Without CT evidence of acute diverticulitis - Noted on CTA and prior CT Scan 04/2018 Hepatic Steatosis - Noted on CTA and prior CT Scan 04/2018 Umbilical Hernia - Noted on CTA and prior CT Scan 04/2018 Prophylactic Measures - GI PPX: Protonix IVP daily - DVT PPX: SCDs, VTE not indicated Disposition: Will advance diet as tolerated. Pending MRCP results. Autoimmune workup ordered. Assessment and plan d/w Dr. Miguel Angel Sanders, PGY-1 <Tatum Michelle V - Last Filed: 10/10/18 18:36> Objective - Vital Signs/Intake and Output Vital Signs (last 24 hours): Temp Pulse Resp BP Pulse Ox 98.1 F 91 H 20 122/79 96 10/10/18 15:49 10/10/18 15:49 10/10/18 15:49 10/10/18 15:49 10/10/18 15:49 Intake and Output: 10/10/18 10/10/18 06:59 18:59 Intake Total 5300 2460 Balance 5300 2460 - Medications Medications: Current Medications Acetaminophen (Tylenol 325mg Tab) 650 mg PO Q6 PRN PRN Reason: Fever >100.4 F Lactated Ringer's (Lactated Ringer's) 1,000 mls @ 150 mls/hr IV .Q6H40M [facility] Last Admin: 10/10/18 06:26 Dose: 150 mls/hr Lactated Ringer's (Lactated Ringer's) 1,000 mls @ 150 mls/hr IV .Q6H40M [facility] Last Admin: 10/10/18 06:27 Dose: 150 mls/hr Morphine Sulfate (Morphine) 2 mg IVP Q6H PRN PRN Reason: Pain, severe (8-10) Last Admin: 10/09/18 10:13 Dose: 2 mg Ondansetron HCl (Zofran Inj) 4 mg IVP Q6 PRN PRN Reason: Nausea/Vomiting - Labs Labs: 10/10/18 06:40 10/10/18 06:40 Attending/Attestation - Attestation I have personally seen and examined this patient.: Yes I have fully participated in the care of the patient.: Yes I have reviewed all pertinent clinical information, including history, physical exam and plan: Yes Notes (Text): Patient seen, examined case discussed with medical historian. Patient seen this morning during rounds patient noted abdominal pain has improved significantly to is 0 out of 10 on pain scale. He denies history of ga llstones, alcohol, lipid issues. No recent trauma. Patient is very pleasant at bedside asking when he can eat radiology specialist present at bedside to take him to MRCP. Noted MRCP was unremarkable diet resumed. To liquid and to advance as tolerated. Patient history I did speak with him later this afternoon noted that likely to follow-up with him outpatient for EUS and could be discharged later if tolerates diet at dinnertime. However patient left AGAINST MEDICAL ADVICE noted in nursing note there was risks and benefits discussed by the resident later this evening. Assessment/Plan 1. Pancreatitis Assessment/plan Ileana's criteria [address] abdomen and MRCP reviewed the time of balance Unclear etiology to pancreatitis We will need to follow-up with GI as outpatient Prior CT Scan 04/2018 - Findings suspicious for acute noncomplicated pancreatitis. No CT evidence of radiodense gallstones or acute cholecystitis. Mild hepatomegaly with findings suggestive of moderate hepatic steatosis. Foci of pleural thickening at the left chest base. CTA 10/08/18: Mild left basilar atelectasis/infiltrate. Nodularity/pleural thickening along the left lung base. Marked gastric wall thickening and associated inflammatory changes raise concern for acute gastritis. Pancreas appears edematous with associated peripancreatic inflammatory changes; correlate clinically for acute pancreatitis. Prominent mesenteric/peripancreat ic/perigastric lymph nodes measuring up to approximately 12 mm in short axis.Hypoattenuation of the liver compatible with hepatic steatosis. Diverticulosis without CT evidence of acute diverticulitis. Small pelvic free fluid is identified. 14 mm fat containing umbilical hernia. Left sided L5 spondylolysis. Abdominal US 10/08/18: LIVER:Measures 19.0 cm in length. Echogenic liver may be seen in setting of hepatic parenchymal disease or fatty infiltration. No focal hepatic mass identified. The main portal vein appears patent with normal directional flow. No intrahepatic bile duct dilatation. GALLBLADDER:No gallstones. No gallbladder wall thickening or pericholecystic edema. Negative sonographic Crocker's sign as assessed by the parts order and stock clerk. COMMON BILE DUCT:Measures 5 mm. MRCP : Unremarkable exam. 2. Chest pain resolved Troponins X3 Negative Acute Pancreatitis -- Dr. Hoang consulted - (saw patient in 03/2018) 3. Former Tobacco User - 1 PPD for 34 years, quit 2 years ago - No masses noted on CTA 4. History of Diverticulosis - Without CT evidence of acute diverticulitis - Noted on CTA and prior CT Scan 04/2018 5. Hepatic Steatosis - Noted on CTA and prior CT Scan 04/2018 Abdominal US 10/08/18: LIVER:Measures 19.0 cm in length. Echogenic liver may be seen in setting of hepatic parenchymal disease or fatty infiltration. No focal hepatic mass identified. The main portal vein appears patent with normal directional flow. No intrahepatic bile duct dilatation. GALLBLADDER:No gallstones. No gallbladder wall thickening or pericholecystic edema. Negative sonographic Crocker's sign as assessed by the parts order and stock clerk. COMMON BILE DUCT:Measures 5 mm. 6. History of Umbilical Hernia - Noted on CTA and prior CT Scan 04/2018 7. Prophylactic Measures - GI PPX: Protonix IVP daily - DVT PPX: SCDs, VTE not indicated
[2018-10-10] MEDS ORDERED: Gadodiamide 287 mg/ml 20 ml IV ONE (11:25)
[2018-10-10 11:39] LABS: ANA PATTERN HOMOGENOUS
--- NOTE | 2018-10-10 12:19 | MRI ---
Date of service: 10/10/2018 PROCEDURE: MRI Abdomen with and without contrast HISTORY: COMPARISON: None available. TECHNIQUE: Multisequence, multiplanar MR images of the abdomen with and without gadolinium contrast enhancement. FINDINGS: LIVER: Unremarkable. GALLBLADDER: Unremarkable. SPLEEN: Unremarkable. PANCREAS: Unremarkable. ADRENALS: Unremarkable. KIDNEYS: Unremarkable. AORTA: No aneurysm. ASCITES: None. PERITONEUM: Unremarkable. LYMPH NODES: Unremarkable. OTHER FINDINGS: None. IMPRESSION: Unremarkable exam.
[2018-10-10 13:48] LABS: HEPATITIS B SURFACE AG Negative (NEGATIVE)
[2018-10-10 13:54] LABS: HEPATITIS A IGM NEGATIVE (NEGATIVE); HEPATITIS B CORE AB NEGATIVE (NEGATIVE)
--- NOTE | 2018-10-10 13:57 | CP.PCM.PN ---
Subjective - Date & Time of Evaluation Date of Evaluation: 10/10/18 Time of Evaluation: 13:54 - Subjective Subjective: Patient reports chronic daily abdominal pain. Now feels better. Wants to eat and go home. Had EGD and sonogram with Dr Tello around Jan 2018, but states he wants to follow up with me. MRCP- normal, however CT showed peripancreatic adenopathy, pancreatic edema. Denies ETOH. Triglycerides WNL. LOU low titer positive. denies family history of pancreatitis Objective - Vital Signs/Intake and Output Vital Signs (last 24 hours): Temp Pulse Resp BP Pulse Ox 97.9 F 79 20 123/79 97 10/10/18 07:44 10/10/18 07:44 10/10/18 07:44 10/10/18 07:44 10/10/18 07:44 Intake and Output: 10/10/18 10/10/18 06:59 18:59 Intake Total 5300 Balance 5300 - Medications Medications: Current Medications Acetaminophen (Tylenol 325mg Tab) 650 mg PO Q6 PRN PRN Reason: Fever >100.4 F Lactated Ringer's (Lactated Ringer's) 1,000 mls @ 150 mls/hr IV .Q6H40M [facility] Last Admin: 10/10/18 06:26 Dose: 150 mls/hr Lactated Ringer's (Lactated Ringer's) 1,000 mls @ 150 mls/hr IV .Q6H40M [facility] Last Admin: 10/10/18 06:27 Dose: 150 mls/hr Morphine Sulfate (Morphine) 2 mg IVP Q6H PRN PRN Reason: Pain, severe (8-10) Last Admin: 10/09/18 10:13 Dose: 2 mg Ondansetron HCl (Zofran Inj) 4 mg IVP Q6 PRN PRN Reason: Nausea/Vomiting - Labs Labs: 10/10/18 06:40 10/10/18 06:40 - Constitutional Appears: Well, No Acute Distress - Head Exam Head Exam: NORMOCEPHALIC - Eye Exam Eye Exam: absent: Scleral icterus - Respiratory Exam Respiratory Exam: NORMAL BREATHING PATTERN - Cardiovascular Exam Cardiovascular Exam: REGULAR RHYTHM - GI/Abdominal Exam GI & Abdominal Exam: Soft, Normal Bowel Sounds. absent: Guarding, Tenderness Assessment and Plan (1) Chronic relapsing pancreatitis Assessment & Plan: By history, chronic abdominal pain, peripancreatic adenopathy, i suspect chronic pancreatitis. Cause undetermined May advance diet and if tolerated discharge home. Pt will follow up with me. Will likely need EUS as outpatient Children present for discussion. My contact information was provided to patient Status: Acute
[2018-10-10 14:05] LABS: HEPATITIS C ANTIBODY NEGATIVE (NEGATIVE)
[2018-10-10 15:51] VITALS: BP 122/79; PULSE 91; TEMP 98.1; O2SAT 96
--- NOTE | 2018-10-10 16:35 | CP.PCM.DIS ---
Provider - Provider Date of Admission: 10/08/18 15:11 Attending physician: Keenan Cavazos DO Consults: 10/08/18 17:21 Gastroenterology Consult Routine Comment: Pt seen in your office 03/2018 Consulting Provider: Bayron Hoagn Consulting Physician: Bayron Hoang Reason for Consult: Recurrent pancreatitis (2 known episodes in 6 months) Hospital Course - Lab Results Lab Results: Most Recent Lab Values WBC 9.7 K/uL (4.8-10.8) 10/10/18 06:40 RBC 4.78 Mil/uL (4.40-5.90) 10/10/18 06:40 Hgb 13.6 g/dL (12.0-18.0) 10/10/18 06:40 Hct 40.9 % (35.0-51.0) 10/10/18 06:40 MCV 85.4 fL (80.0-94.0) 10/10/18 06:40 MCH 28.4 pg (27.0-31.0) 10/10/18 06:40 MCHC 33.3 g/dL (33.0-37.0) 10/10/18 06:40 RDW 13.8 % (11.5-14.5) 10/10/18 06:40 Plt Count 237 K/uL (130-400) 10/10/18 06:40 MPV 8.1 fL (7.2-11.7) 10/10/18 06:40 Neut % (Auto) 65.9 % (50.0-75.0) 10/10/18 06:40 Lymph % (Auto) 19.9 % (20.0-40.0) L 10/10/18 06:40 [place] % (Auto) 9.3 % (0.0-10.0) 10/10/18 06:40 Eos % (Auto) 4.7 % (0.0-4.0) H 10/10/18 06:40 Baso % (Auto) 0.2 % (0.0-2.0) 10/10/18 06:40 Neut # (Auto) 6.4 K/uL (1.8-7.0) 10/10/18 06:40 Lymph # (Auto) 1.9 K/uL (1.0-4.3) 10/10/18 06:40 [place] # (Auto) 0.9 K/uL (0.0-0.8) H 10/10/18 06:40 Eos # (Auto) 0.5 K/uL (0.0-0.7) 10/10/18 06:40 Baso # (Auto) 0.0 K/uL (0.0-0.2) 10/10/18 06:40 Sodium 138 mmol/L (132-148) 10/10/18 06:40 Potassium 3.9 mmol/L (3.6-5.2) 10/10/18 06:40 Chloride 102 mmol/L (98-107) 10/10/18 06:40 Carbon Dioxide 26 mmol/L (22-30) 10/10/18 06:40 Anion Gap 13 (10-20) 10/10/18 06:40 BUN 10 mg/dL (9-20) 10/10/18 06:40 Creatinine 0.8 mg/dL (0.8-1.5) 10/10/18 06:40 Est GFR ( Amer) > 60 10/10/18 06:40 Est GFR (Non-Af Amer) > 60 10/10/18 06:40 POC Glucose (mg/dL) 101 mg/dL (65-110) 10/10/18 07:08 Random Glucose 95 mg/dL (75-110) 10/10/18 06:40 Calcium 8.7 mg/dl (8.6-10.4) 10/10/18 06:40 Phosphorus 2.7 mg/dL (2.5-4.5) 10/10/18 06:40 Magnesium 1.8 mg/dL (1.6-2.3) 10/10/18 06:40 Total Bilirubin 0.6 mg/dL (0.2-1.3) 10/10/18 06:40 AST 20 U/L (17-59) 10/10/18 06:40 ALT 28 U/L (21-72) 10/10/18 06:40 Alkaline Phosphatase 72 U/L (38-126) 10/10/18 06:40 Total Creatine Kinase 70 U/L (55-170) 10/09/18 07:17 CK-MB (Mass) 0.43 ng/mL (0.0-3.38) 10/09/18 07:17 Troponin I < 0.0120 ng/mL (0.00-0.120) 10/09/18 07:17 Total Protein 5.8 g/dL (6.3-8.3) L 10/10/18 06:40 Albumin 3.3 g/dL (3.5-5.0) L 10/10/18 06:40 Globulin 2.5 gm/dL (2.2-3.9) 10/10/18 06:40 Albumin/Globulin Ratio 1.3 (1.0-2.1) 10/10/18 06:40 Triglycerides 139 mg/dL (0-149) 10/08/18 15:34 Cholesterol 178 mg/dL (0-199) 10/08/18 15:34 LDL Cholesterol Direct 122 mg/dL (0-129) 10/08/18 15:34 HDL Cholesterol 32 mg/dL (30-70) 10/08/18 15:34 Lipase 4816 U/L (23-300) H 10/08/18 11:56 Urine Color Yellow (YELLOW) 10/08/18 13:53 Urine Clarity Clear (Clear) 10/08/18 13:53 Urine pH 6.0 (5.0-8.0) 10/08/18 13:53 Ur Specific [place] 1.024 (1.003-1.030) 10/08/18 13:53 Urine Protein Negative mg/dL (NEGATIVE) 10/08/18 13:53 Urine Glucose (UA) Normal mg/dL (Normal) 10/08/18 13:53 Urine Ketones Negative mg/dL (NEGATIVE) 10/08/18 13:53 Urine Blood Negative (NEGATIVE) 10/08/18 13:53 Urine Nitrate Negative (NEGATIVE) 10/08/18 13:53 Urine Bilirubin Negative (NEGATIVE) 10/08/18 13:53 Urine Urobilinogen Normal mg/dL (0.2-1.0) 10/08/18 13:53 Ur Leukocyte Esterase Neg Jaden/uL (Negative) 10/08/18 13:53 Urine WBC (Auto) < 1 /hpf (0-5) 10/08/18 13:53 Urine RBC (Auto) < 1 /hpf (0-3) 10/08/18 13:53 Urine Opiates Screen Positive (NEGATIVE) H 10/08/18 15:36 Urine Methadone Screen Negative (NEGATIVE) 10/08/18 15:36 Ur Barbiturates Screen Negative (NEGATIVE) 10/08/18 15:36 Ur Phencyclidine Scrn Negative (NEGATIVE) 10/08/18 15:36 Ur Amphetamines Screen Negative (NEGATIVE) 10/08/18 15:36 U Benzodiazepines Scrn Negative (NEGATIVE) 10/08/18 15:36 U Oth Cocaine Metabols Negative (NEGATIVE) 10/08/18 15:36 U Cannabinoids Screen Negative (NEGATIVE) 10/08/18 15:36 Alcohol, Quantitative < 10 mg/dl (0-10) 10/08/18 15:34 LOU 6 Profile Positive (NEGATIVE) H 10/09/18 07:17 LOU Titer 1:40 H 10/09/18 07:17 LOU Pattern Homogenous H 10/09/18 07:17 Hepatitis A IgM Ab Negative (NEGATIVE) 10/10/18 13:05 Hep Bs Antigen Negative (NEGATIVE) 10/10/18 13:05 Hep B Core IgM Ab Negative (NEGATIVE) 10/10/18 13:05 Hepatitis C Antibody Negative (NEGATIVE) 10/10/18 13:05 Discharge Exam - Head Exam Head Exam: ATRAUMATIC, NORMOCEPHALIC Discharge Plan - Follow Up Plan Condition: GOOD Disposition: AGAINST MEDICAL ADVICE Additional Instructions: Patient is cleared for discharge per primary team. Please follow up with your primary care physician within 7-10 days of discharge. Please return to ER if symptoms recur or worsen.
--- NOTE | 2018-10-10 16:37 | CP.PCM.DIS ---
<Alonso Sanders - Last Filed: 10/10/18 16:39> Provider - Provider Date of Admission: 10/08/18 15:11 Attending physician: Keenan Cavazos DO Consults: 10/08/18 17:21 Gastroenterology Consult Routine Comment: Pt seen in your office 03/2018 Consulting Provider: Bayron Hoang Consulting Physician: Bayron Hoang Reason for Consult: Recurrent pancreatitis (2 known episodes in 6 months) Time Spent in preparation of Discharge (in minutes): 45 Diagnosis - Discharge Diagnosis (1) Chronic relapsing pancreatitis Status: Acute Hospital Course - Lab Results Lab Results: Most Recent Lab Values WBC 9.7 K/uL (4.8-10.8) 10/10/18 06:40 RBC 4.78 Mil/uL (4.40-5.90) 10/10/18 06:40 Hgb 13.6 g/dL (12.0-18.0) 10/10/18 06:40 Hct 40.9 % (35.0-51.0) 10/10/18 06:40 MCV 85.4 fL (80.0-94.0) 10/10/18 06:40 MCH 28.4 pg (27.0-31.0) 10/10/18 06:40 MCHC 33.3 g/dL (33.0-37.0) 10/10/18 06:40 RDW 13.8 % (11.5-14.5) 10/10/18 06:40 Plt Count 237 K/uL (130-400) 10/10/18 06:40 MPV 8.1 fL (7.2-11.7) 10/10/18 06:40 Neut % (Auto) 65.9 % (50.0-75.0) 10/10/18 06:40 Lymph % (Auto) 19.9 % (20.0-40.0) L 10/10/18 06:40 [place] % (Auto) 9.3 % (0.0-10.0) 10/10/18 06:40 Eos % (Auto) 4.7 % (0.0-4.0) H 10/10/18 06:40 Baso % (Auto) 0.2 % (0.0-2.0) 10/10/18 06:40 Neut # (Auto) 6.4 K/uL (1.8-7.0) 10/10/18 06:40 Lymph # (Auto) 1.9 K/uL (1.0-4.3) 10/10/18 06:40 [place] # (Auto) 0.9 K/uL (0.0-0.8) H 10/10/18 06:40 Eos # (Auto) 0.5 K/uL (0.0-0.7) 10/10/18 06:40 Baso # (Auto) 0.0 K/uL (0.0-0.2) 10/10/18 06:40 Sodium 138 mmol/L (132-148) 10/10/18 06:40 Potassium 3.9 mmol/L (3.6-5.2) 10/10/18 06:40 Chloride 102 mmol/L (98-107) 10/10/18 06:40 Carbon Dioxide 26 mmol/L (22-30) 10/10/18 06:40 Anion Gap 13 (10-20) 10/10/18 06:40 BUN 10 mg/dL (9-20) 10/10/18 06:40 Creatinine 0.8 mg/dL (0.8-1.5) 10/10/18 06:40 Est GFR ( Amer) > 60 10/10/18 06:40 Est GFR (Non-Af Amer) > 60 10/10/18 06:40 POC Glucose (mg/dL) 101 mg/dL (65-110) 10/10/18 07:08 Random Glucose 95 mg/dL (75-110) 10/10/18 06:40 Calcium 8.7 mg/dl (8.6-10.4) 10/10/18 06:40 Phosphorus 2.7 mg/dL (2.5-4.5) 10/10/18 06:40 Magnesium 1.8 mg/dL (1.6-2.3) 10/10/18 06:40 Total Bilirubin 0.6 mg/dL (0.2-1.3) 10/10/18 06:40 AST 20 U/L (17-59) 10/10/18 06:40 ALT 28 U/L (21-72) 10/10/18 06:40 Alkaline Phosphatase 72 U/L (38-126) 10/10/18 06:40 Total Creatine Kinase 70 U/L (55-170) 10/09/18 07:17 CK-MB (Mass) 0.43 ng/mL (0.0-3.38) 10/09/18 07:17 Troponin I < 0.0120 ng/mL (0.00-0.120) 10/09/18 07:17 Total Protein 5.8 g/dL (6.3-8.3) L 10/10/18 06:40 Albumin 3.3 g/dL (3.5-5.0) L 10/10/18 06:40 Globulin 2.5 gm/dL (2.2-3.9) 10/10/18 06:40 Albumin/Globulin Ratio 1.3 (1.0-2.1) 10/10/18 06:40 Triglycerides 139 mg/dL (0-149) 10/08/18 15:34 Cholesterol 178 mg/dL (0-199) 10/08/18 15:34 LDL Cholesterol Direct 122 mg/dL (0-129) 10/08/18 15:34 HDL Cholesterol 32 mg/dL (30-70) 10/08/18 15:34 Lipase 4816 U/L (23-300) H 10/08/18 11:56 Urine Color Yellow (YELLOW) 10/08/18 13:53 Urine Clarity Clear (Clear) 10/08/18 13:53 Urine pH 6.0 (5.0-8.0) 10/08/18 13:53 Ur Specific [place] 1.024 (1.003-1.030) 10/08/18 13:53 Urine Protein Negative mg/dL (NEGATIVE) 10/08/18 13:53 Urine Glucose (UA) Normal mg/dL (Normal) 10/08/18 13:53 Urine Ketones Negative mg/dL (NEGATIVE) 10/08/18 13:53 Urine Blood Negative (NEGATIVE) 10/08/18 13:53 Urine Nitrate Negative (NEGATIVE) 10/08/18 13:53 Urine Bilirubin Negative (NEGATIVE) 10/08/18 13:53 Urine Urobilinogen Normal mg/dL (0.2-1.0) 10/08/18 13:53 Ur Leukocyte Esterase Neg Jaden/uL (Negative) 10/08/18 13:53 Urine WBC (Auto) < 1 /hpf (0-5) 10/08/18 13:53 Urine RBC (Auto) < 1 /hpf (0-3) 10/08/18 13:53 Urine Opiates Screen Positive (NEGATIVE) H 10/08/18 15:36 Urine Methadone Screen Negative (NEGATIVE) 10/08/18 15:36 Ur Barbiturates Screen Negative (NEGATIVE) 10/08/18 15:36 Ur Phencyclidine Scrn Negative (NEGATIVE) 10/08/18 15:36 Ur Amphetamines Screen Negative (NEGATIVE) 10/08/18 15:36 U Benzodiazepines Scrn Negative (NEGATIVE) 10/08/18 15:36 U Oth Cocaine Metabols Negative (NEGATIVE) 10/08/18 15:36 U Cannabinoids Screen Negative (NEGATIVE) 10/08/18 15:36 Alcohol, Quantitative < 10 mg/dl (0-10) 10/08/18 15:34 LOU 6 Profile Positive (NEGATIVE) H 10/09/18 07:17 LOU Titer 1:40 H 10/09/18 07:17 LOU Pattern Homogenous H 10/09/18 07:17 Hepatitis A IgM Ab Negative (NEGATIVE) 10/10/18 13:05 Hep Bs Antigen Negative (NEGATIVE) 10/10/18 13:05 Hep B Core IgM Ab Negative (NEGATIVE) 10/10/18 13:05 Hepatitis C Antibody Negative (NEGATIVE) 10/10/18 13:05 - Hospital Course Hospital Course: HPI This is a 53 year old male with PMHx pancreatitis, diverticulosis, hepatic steatosis, and an umbilical hernia who is being admitted for chest and abdominal pain. Patient came to [facility] (Former[facility]) to have a CT scane done that was ordered by his PCP for continued abdominal pain. Patient reported to have chest pain and was encouraged to come to the ED for further evaluation. As per patient, he has had abdominal pain for almost 6 months. He had a prior abdominal CT Scan in April 2018, showing acute pancreatitis. Patient had EGD performed 4 months ago, which was unremarkable for any findings. He was instructed by his PMD to follow up with Cardio as well, however he has not. Patient reports because he works all day he does not eat. Instead he eats, mostly unhealthy food at night. As the 6 months progressed, the pain is worse and more frequent. The pain is sharp in nature, epigastric, and at times radiates to his chest and back. The patient has just dealt with the pain, however this time it was unbearable. He had a cup of coffee in the morning and vomited shortly after. Patient denied any alcohol use or recent travel. Hospital course Patient with PMHx pancreatitis was expiencing abdominal pain radiating to back and chest - treated as acute pancreatitis. Patient was seen by GI, Dr. Browne and Dr. Hoang. Initial CT of the abdomen showed edematous pancreas with associated peripancreatic inflammatory changes. Patient was worked up for autoimmune causes of pancreatitis and cancer as patient with multiple cases of pancreatitis in the past with no significant risk factors (doesn't drink, total cholesterol and LDL WNL, no gallstones). Some of these lab results were still pending at time of AMA. Patient had MRCP done on 10/10 which was negative for any acute pathology. Per GI, this patient likely has chronic pancreatitis. Patient left against medical advice on 10/10. Informed to please follow up with GI and primary. Imaging CTA 10/08/18: Mild left basilar atelectasis/infiltrate. Nodularity/pleural thickening along the left lung base. Marked gastric wall thickening and associated inflammatory changes raise concern for acute gastritis. Pancreas appears edematous with associated peripancreatic inflammatory changes; correlate clinically for acute pancreatitis. Prominent mesenteric/peripancreatic/perigastric lymph nodes measuring up to approximately 12 mm in short axis.Hypoattenuation of the liver compatible with hepatic steatosis. Diverticulosis without CT evidence of acute diverticulitis. Small pelvic free fluid is identified. 14 mm fat containing umbilical hernia. Left sided L5 spondylolysis. Abdominal US 10/08/18: LIVER:Measures 19.0 cm in length. Echogenic liver may be seen in setting of hepatic parenchymal disease or fatty infiltration. No focal hepatic mass identified. The main portal vein appears patent with normal directional flow. No intrahepatic bile duct dilatation. GALLBLADDER:No gallstones. No gallbladder wall thickening or pericholecystic edema. Negative sonographic Crocker's sign as assessed by the driving school instructor. COMMON BILE DUCT:Measures 5 mm. MRCP : Unremarkable exam. Discharge Exam - Head Exam Head Exam: ATRAUMATIC, NORMOCEPHALIC Additional comments: See previous note for physical exam Discharge Plan - Follow Up Plan Condition: STABLE Disposition: AGAINST MEDICAL ADVICE Additional Instructions: Patient left against medical advice <Borker,Tatum V - Last Filed: 10/10/18 18:41> Provider - Provider Date of Admission: 10/08/18 15:11 Attending physician: Keenan Cavazos DO Consults: 10/08/18 17:21 Gastroenterology Consult Routine Comment: Pt seen in your office 03/2018 Consulting Provider: Bayron Hoang Consulting Physician: Bayron Hoang Reason for Consult: Recurrent pancreatitis (2 known episodes in 6 months) Diagnosis - Discharge Diagnosis (1) Left against medical advice Status: Acute Comment: Risk and benefits discussed per resident in regards to leaving AGAINST MEDICAL ADVICE. As well as documented nursing note. (2) Chronic relapsing pancreatitis Status: Acute Comment: Patient seen and evaluated by GI unclear etiology to pancreatitis. Patient did complete both a CT as well as MRCP. MRCP does not show. GI has recommended diet was advanced today however patient wanted to leave AGAINST MEDICAL ADVICE (3) Former smoker Status: Chronic Comment: Patient has quit smoking and continues to quit smoking patient reports he used to do it sparingly. Patient counseled at bedside as well to continue sensation (4) Hepatic steatosis Status: Chronic Comment: History noted in imaging. (5) Diverticulosis Status: Chronic Comment: History of been noted on imaging Hospital Course - Lab Results Lab Results: Most Recent Lab Values WBC 9.7 K/uL (4.8-10.8) 10/10/18 06:40 RBC 4.78 Mil/uL (4.40-5.90) 10/10/18 06:40 Hgb 13.6 g/dL (12.0-18.0) 10/10/18 06:40 Hct 40.9 % (35.0-51.0) 10/10/18 06:40 MCV 85.4 fL (80.0-94.0) 10/10/18 06:40 MCH 28.4 pg (27.0-31.0) 10/10/18 06:40 MCHC 33.3 g/dL (33.0-37.0) 10/10/18 06:40 RDW 13.8 % (11.5-14.5) 10/10/18 06:40 Plt Count 237 K/uL (130-400) 10/10/18 06:40 MPV 8.1 fL (7.2-11.7) 10/10/18 06:40 Neut % (Auto) 65.9 % (50.0-75.0) 10/10/18 06:40 Lymph % (Auto) 19.9 % (20.0-40.0) L 10/10/18 06:40 [place] % (Auto) 9.3 % (0.0-10.0) 10/10/18 06:40 Eos % (Auto) 4.7 % (0.0-4.0) H 10/10/18 06:40 Baso % (Auto) 0.2 % (0.0-2.0) 10/10/18 06:40 Neut # (Auto) 6.4 K/uL (1.8-7.0) 10/10/18 06:40 Lymph # (Auto) 1.9 K/uL (1.0-4.3) 10/10/18 06:40 [place] # (Auto) 0.9 K/uL (0.0-0.8) H 10/10/18 06:40 Eos # (Auto) 0.5 K/uL (0.0-0.7) 10/10/18 06:40 Baso # (Auto) 0.0 K/uL (0.0-0.2) 10/10/18 06:40 Sodium 138 mmol/L (132-148) 10/10/18 06:40 Potassium 3.9 mmol/L (3.6-5.2) 10/10/18 06:40 Chloride 102 mmol/L (98-107) 10/10/18 06:40 Carbon Dioxide 26 mmol/L (22-30) 10/10/18 06:40 Anion Gap 13 (10-20) 10/10/18 06:40 BUN 10 mg/dL (9-20) 10/10/18 06:40 Creatinine 0.8 mg/dL (0.8-1.5) 10/10/18 06:40 Est GFR ( Amer) > 60 10/10/18 06:40 Est GFR (Non-Af Amer) > 60 10/10/18 06:40 POC Glucose (mg/dL) 101 mg/dL (65-110) 10/10/18 07:08 Random Glucose 95 mg/dL (75-110) 10/10/18 06:40 Calcium 8.7 mg/dl (8.6-10.4) 10/10/18 06:40 Phosphorus 2.7 mg/dL (2.5-4.5) 10/10/18 06:40 Magnesium 1.8 mg/dL (1.6-2.3) 10/10/18 06:40 Total Bilirubin 0.6 mg/dL (0.2-1.3) 10/10/18 06:40 AST 20 U/L (17-59) 10/10/18 06:40 ALT 28 U/L (21-72) 10/10/18 06:40 Alkaline Phosphatase 72 U/L (38-126) 10/10/18 06:40 Total Creatine Kinase 70 U/L (55-170) 10/09/18 07:17 CK-MB (Mass) 0.43 ng/mL (0.0-3.38) 10/09/18 07:17 Troponin I < 0.0120 ng/mL (0.00-0.120) 10/09/18 07:17 Total Protein 5.8 g/dL (6.3-8.3) L 10/10/18 06:40 Albumin 3.3 g/dL (3.5-5.0) L 10/10/18 06:40 Globulin 2.5 gm/dL (2.2-3.9) 10/10/18 06:40 Albumin/Globulin Ratio 1.3 (1.0-2.1) 10/10/18 06:40 Triglycerides 139 mg/dL (0-149) 10/08/18 15:34 Cholesterol 178 mg/dL (0-199) 10/08/18 15:34 LDL Cholesterol Direct 122 mg/dL (0-129) 10/08/18 15:34 HDL Cholesterol 32 mg/dL (30-70) 10/08/18 15:34 Lipase 4816 U/L (23-300) H 10/08/18 11:56 Urine Color Yellow (YELLOW) 10/08/18 13:53 Urine Clarity Clear (Clear) 10/08/18 13:53 Urine pH 6.0 (5.0-8.0) 10/08/18 13:53 Ur Specific [place] 1.024 (1.003-1.030) 10/08/18 13:53 Urine Protein Negative mg/dL (NEGATIVE) 10/08/18 13:53 Urine Glucose (UA) Normal mg/dL (Normal) 10/08/18 13:53 Urine Ketones Negative mg/dL (NEGATIVE) 10/08/18 13:53 Urine Blood Negative (NEGATIVE) 10/08/18 13:53 Urine Nitrate Negative (NEGATIVE) 10/08/18 13:53 Urine Bilirubin Negative (NEGATIVE) 10/08/18 13:53 Urine Urobilinogen Normal mg/dL (0.2-1.0) 10/08/18 13:53 Ur Leukocyte Esterase Neg Jaden/uL (Negative) 10/08/18 13:53 Urine WBC (Auto) < 1 /hpf (0-5) 10/08/18 13:53 Urine RBC (Auto) < 1 /hpf (0-3) 10/08/18 13:53 Urine Opiates Screen Positive (NEGATIVE) H 10/08/18 15:36 Urine Methadone Screen Negative (NEGATIVE) 10/08/18 15:36 Ur Barbiturates Screen Negative (NEGATIVE) 10/08/18 15:36 Ur Phencyclidine Scrn Negative (NEGATIVE) 10/08/18 15:36 Ur Amphetamines Screen Negative (NEGATIVE) 10/08/18 15:36 U Benzodiazepines Scrn Negative (NEGATIVE) 10/08/18 15:36 U Oth Cocaine Metabols Negative (NEGATIVE) 10/08/18 15:36 U Cannabinoids Screen Negative (NEGATIVE) 10/08/18 15:36 Alcohol, Quantitative < 10 mg/dl (0-10) 10/08/18 15:34 LOU 6 Profile Positive (NEGATIVE) H 10/09/18 07:17 LOU Titer 1:40 H 10/09/18 07:17 LOU Pattern Homogenous H 10/09/18 07:17 Hepatitis A IgM Ab Negative (NEGATIVE) 10/10/18 13:05 Hep Bs Antigen Negative (NEGATIVE) 10/10/18 13:05 Hep B Core IgM Ab Negative (NEGATIVE) 10/10/18 13:05 Hepatitis C Antibody Negative (NEGATIVE) 10/10/18 13:05 Attending/Attestation - Attestation I have personally seen and examined this patient.: Yes I have fully participated in the care of the patient.: Yes I have reviewed all pertinent clinical information, including history, physical exam and plan: Yes Notes (Text): Noted patient seen and examined this morning. Noted in the progress note from earlier today. Patient did leave AGAINST MEDICAL ADVICE later today. Patient will likely need his need to follow-up with GI appointment for EUS. This is recently patient hospitalization please refer to EMR for full details record thank you. Discharge Diagnoses: 1. Left Against Medical Advice 2. Pancreatitis, Chronic relapsing Assessment/plan [place]'s criteria [address] abdomen and MRCP reviewed the time of balance Unclear etiology to pancreatitis We will need to follow-up with GI as outpatient Prior CT Scan 04/2018 - Findings suspicious for acute noncomplicated pancreatitis. No CT evidence of radiodense gallstones or acute cholecystitis. Mild hepatomegaly with findings suggestive of moderate hepatic steatosis. Foci of pleural thickening at the left chest base. CTA 10/08/18: Mild left basilar atelectasis/infiltrate. Nodularity/pleural thickening along the left lung base. Marked gastric wall thickening and associated inflammatory changes raise concern for acute gastritis. Pancreas appears edematous with associated peripancreatic inflammatory changes; correlate clinically for acute pancreatitis. Prominent mesenteric/peripancreatic/perigastric lymph nodes measuring up to approximately 12 mm in short axis.Hypoattenuation of the liver compatible with hepatic steatosis. Diverticulosis without CT evidence of acute diverticulitis. Small pelvic free fluid is identified. 14 mm fat containing umbilical hernia. Left sided L5 spondylolysis. Abdominal US 10/08/18: LIVER:Measures 19.0 cm in length. Echogenic liver may be seen in setting of hepatic parenchymal disease or fatty infiltration. No focal hepatic mass identified. The main portal vein appears patent with normal directional flow. No intrahepatic bile duct dilatation. GALLBLADDER:No gallstones. No gallbladder wall thickening or pericholecystic edema. Negative sonographic Crocker's sign as assessed by the driving school instructor. COMMON BILE DUCT:Measures 5 mm. MRCP : Unremarkable exam. 3. Chest pain resolved Troponins X3 Negative Acute Pancreatitis -- Dr. Hoang consulted - (saw patient in 03/2018) 4. Former Tobacco User - 1 PPD for 34 years, quit 2 years ago - No masses noted on CTA 5. History of Diverticulosis - Without CT evidence of acute diverticulitis - Noted on CTA and prior CT Scan 04/2018 6. Hepatic Steatosis - Noted on CTA and prior CT Scan 04/2018 Abdominal US 10/08/18: LIVER:Measures 19.0 cm in length. Echogenic liver may be seen in setting of hepatic parenchymal disease or fatty infiltration. No focal hepatic mass identified. The main portal vein appears patent with normal directional flow. No intrahepatic bile duct dilatation. GALLBLADDER:No gallstones. No gallbladder wall thickening or pericholecystic edema. Negative sonographic Crocker's sign as assessed by the driving school instructor. COMMON BILE DUCT:Measures 5 mm. 7. History of Umbilical Hernia - Noted on CTA and prior CT Scan 04/2018 8. Prophylactic Measures - GI PPX: Protonix IVP daily - DVT PPX: SCDs, VTE not indicated
== END 2018-10-10 17:55 | disposition left against medical advice (07) | DRG 440 ==
LOC: C.ER 10:56 → C.9E 15:11 → C.3T 15:49
PROVIDERS: ADMIT Hospitalist; ATTEND Hospitalist
DX: K86.1 Other chronic pancreatitis (principal); M43.06 Spondylolysis, lumbar region; K57.90 Diverticulosis of intestine, part unspecified, without perforation or abscess without bleeding; K42.9 Umbilical hernia without obstruction or gangrene; G89.29 Other chronic pain; Z87.891 Personal history of nicotine dependence